=== PATIENT | female | born 1935 | race Native Hawaiian/Other Pacific Islander ===

== ENCOUNTER 2017-02-09 08:05 | Outpatient (CLI) | payer OTHER ==
[~2017-02-09 08:05] MED LIST: AMLO10TA PO; ANAS1TAB PO; ASPIRIN LOW81 MG PO; CIPRO500 MG PO; GLIP10TA55 PO; GLIP5TAB65 PO; HYDR12.54; HYDR12.54 PO; LEVO0.117 PO; LISI10TA11 PO; MINOCYCLINE100 M1 OR; MOBIC7.5 M1 PO; SIMV40TA57; SIMV40TA57 PO
== END 2017-02-09 20:59 | disposition home or self-care (01) ==
LOC: LABW 08:05
DX: Z79.01 Long term (current) use of anticoagulants (principal)
CPT/HCPCS: 36415; 85610

== ENCOUNTER 2017-02-21 07:38 | Outpatient (CLI) | payer OTHER ==
[2017-02-21 08:07] LABS: PLATELET COUNT 172 K/uL (152-353)
== END 2017-02-21 08:38 | disposition home or self-care (01) ==
LOC: LABW 07:38
PROVIDERS: Internal Medicine
DX: E11.9 Type 2 diabetes mellitus without complications (principal)
CPT/HCPCS: 36415; 80053; 80061; 81000; 83036; 85027

== ENCOUNTER 2017-07-13 09:37 | Outpatient (CLI) | payer OTHER ==
[2017-07-13] MEDS ORDERED: WARF5TAB6 PO ×2 (10:11)
[2017-07-13] MEDS ORDERED: AMLO2.5T PO ×2 (11:35)
[2017-07-13] MEDS ORDERED: LISITAB PO ×2 (11:36)
[2017-07-13] MEDS ORDERED: TRAM50TA PO ×2 (11:37)
[2017-07-13] MEDS ORDERED: NEURONTIN 100M100 MG PO ×2 (20:32)
== END 2017-07-13 09:42 | disposition short-term general hospital (02) ==
LOC: AMB 09:37
DX: R11.2 Nausea with vomiting, unspecified (principal)
CPT/HCPCS: A0425; A0429

== ENCOUNTER 2017-07-13 09:42 | Inpatient (IN) | payer OTHER ==
[~2017-07-13] VITALS: Ht 162.6 cm; Wt 93.9 kg
[2017-07-13] VITALS (9 sets, daily range): BP systolic 106–171; BP diastolic 36–60; TEMP 98–99.1; Ht 162.6 cm; Wt 93.9 kg
[2017-07-13] MEDS ORDERED: WARF5TAB6 PO ×2 (10:11)
[2017-07-13 10:31] LABS: PLATELET COUNT 172 K/uL (152-353); POTASSIUM 3.9 mmol/L (3.6-5.2)
[2017-07-13 11:00] LABS: PARTIAL THROMBOPLASTIN TIME 45.7 SECONDS (24.5-33.6)
[2017-07-13] MEDS ORDERED: AMLO2.5T PO ×2 (11:35)
[2017-07-13] MEDS ORDERED: LISITAB PO ×2 (11:36)
[2017-07-13] MEDS ORDERED: TRAM50TA PO ×2 (11:37)
--- NOTE | 2017-07-13 17:00 | NUR ---
PT HAS SCATTERED BRUISING NOTED TO LEFT AND RIGHT ARMS AND LEGS SHIRA FROM FALL ON 07-10-17. OPEN AREAS CHARTED UNDER WOUND ASSESSMENT.
[2017-07-13] MEDS ORDERED: NEURONTIN 100M100 MG PO ×2 (20:32)
[2017-07-13 22:50] LABS: PLATELET COUNT 173 K/uL (152-353)
[2017-07-13 23:08] LABS: PARTIAL THROMBOPLASTIN TIME 43.7 SECONDS (24.5-33.6)
--- NOTE | 2017-07-14 03:20 | NUR ---
07/13/17 2220: DRESSING ON RIGHT KNEE SATURATED WITH BLOOD. DRESSING REMOVED AND REDRESSED WITH TELFA, 4X4'S AND WRAPPED WITH DONNELL. 2 LARGE BROKEN BLOOD BLISTER ON RIGHT KNEE DRAING.
--- NOTE | 2017-07-14 03:24 | NUR ---
07/14/17 0230: LARGE BLOOD BLISTER ON LEFT ARM DRAINING BLOOD. COVERED WITH 4X4'S AND WRAPPED WITH KERLIX.
[2017-07-14 04:00] VITALS: BP 132/49; TEMP 98.5
[2017-07-14 08:00] VITALS: BP 106/68; TEMP 98.3
[2017-07-14 12:00] VITALS: BP 158/62; TEMP 98.5
[2017-07-14 15:30] LABS: PLATELET COUNT 151 K/uL (152-353)
[2017-07-14 15:52] LABS: PARTIAL THROMBOPLASTIN TIME 28.3 SECONDS (24.5-33.6)
[2017-07-14 15:53] LABS: POTASSIUM 4.3 mmol/L (3.6-5.2)
[2017-07-14 16:00] VITALS: BP 137/54; TEMP 97.8
[2017-07-14 20:00] VITALS: BP 123/51; TEMP 98.7
[2017-07-15 00:27] VITALS: BP 127/50; TEMP 98.1
[2017-07-15 04:00] VITALS: BP 116/50; TEMP 98.3
[2017-07-15 04:05] LABS: PLATELET COUNT 149 K/uL (152-353)
[2017-07-15 04:31] LABS: POTASSIUM 4.1 mmol/L (3.6-5.2)
[2017-07-15 08:00] VITALS: BP 136/60; TEMP 97.3
[2017-07-15 12:18] VITALS: BP 126/60; TEMP 98.7
== END 2017-07-15 15:52 | disposition home or self-care (01) | DRG 813 ==
LOC: ED 09:42 → MED/SURG 11:15
PROVIDERS: Family Medicine; Internal Medicine
PROC: 30233N1 Transfusion of Nonautologous Red Blood Cells into Peripheral Vein, Percutaneous Approach (ICD-10-PCS; principal; 2017-07-14)
DX: D68.8 Other specified coagulation defects (principal); S81.012A Laceration without foreign body, left knee, initial encounter; S81.011A Laceration without foreign body, right knee, initial encounter; W10.8XXA Fall (on) (from) other stairs and steps, initial encounter; Y93.89 Activity, other specified; Y99.8 Other external cause status; D64.89 Other specified anemias; S80.12XA Contusion of left lower leg, initial encounter; S80.11XA Contusion of right lower leg, initial encounter; S40.022A Contusion of left upper arm, initial encounter; S40.021A Contusion of right upper arm, initial encounter; I48.91 Unspecified atrial fibrillation; I10 Essential (primary) hypertension; E11.42 Type 2 diabetes mellitus with diabetic polyneuropathy; E03.8 Other specified hypothyroidism; R79.1 Abnormal coagulation profile
CPT/HCPCS: 36415; 36430; 80053; 82948; 85027; 85610; 85730; 86850; 86900; 86901; 86922; 93005; 96365; 96366; 96374; 96375; 99284; J2405; J3430; J3490; P9016

== ENCOUNTER 2017-10-09 08:02 | Outpatient (CLI) | payer OTHER ==
[~2017-10-09 08:02] MED LIST changes: +AMLO2.5T PO; +LISITAB PO; +NEURONTIN 100M100 MG PO; +TRAM50TA PO; +WARF5TAB6 PO
[2017-10-09 08:33] LABS: PLATELET COUNT 196 K/uL (152-353)
[2017-10-09 08:35] LABS: POTASSIUM 4.2 mmol/L (3.6-5.2)
== END 2017-10-09 19:03 | disposition home or self-care (01) ==
LOC: LABW 08:02
PROVIDERS: Physician Assistant
DX: Z79.01 Long term (current) use of anticoagulants (principal); Z51.81 Encounter for therapeutic drug level monitoring
CPT/HCPCS: 36415; 80048; 85027; 85610

== ENCOUNTER 2017-11-27 07:58 | Outpatient (CLI) | payer OTHER ==
[2017-11-27 08:51] LABS: PLATELET COUNT 187 K/uL (152-353)
[2017-11-27 09:27] LABS: POTASSIUM 3.8 mmol/L (3.6-5.2)
== END 2017-11-27 20:19 | disposition home or self-care (01) ==
LOC: LABW 07:58
PROVIDERS: Internal Medicine Cardiovascular Disease
DX: Z79.899 Other long term (current) drug therapy (principal); Z51.81 Encounter for therapeutic drug level monitoring; E11.9 Type 2 diabetes mellitus without complications
CPT/HCPCS: 36415; 80053; 80061; 80162; 81000; 82043; 82570; 83036; 84439; 84443; 85027; 87088

== ENCOUNTER 2017-12-06 10:55 | Outpatient (CLI) | payer OTHER | END 2017-12-06 19:56 | disposition home or self-care (01) | LOC: LABW 10:55 | DX: Z79.899 Other long term (current) drug therapy (principal); Z51.81 Encounter for therapeutic drug level monitoring | CPT/HCPCS: 36415; 80162 ==

== ENCOUNTER 2018-01-09 15:19 | Outpatient (CLI) | payer OTHER ==
[2018-01-09 15:51] LABS: PLATELET COUNT 217 K/uL (152-353)
== END 2018-01-09 19:52 | disposition home or self-care (01) ==
LOC: LABW 15:19
PROVIDERS: Internal Medicine
DX: M10.9 Gout, unspecified (principal)
CPT/HCPCS: 36415; 80048; 84550; 85027

== ENCOUNTER 2018-01-22 11:02 | Outpatient (CLI) | payer OTHER | END 2018-01-22 19:20 | disposition home or self-care (01) | LOC: LABW 11:02 | DX: R25.2 Cramp and spasm (principal); M25.522 Pain in left elbow; M25.562 Pain in left knee | CPT/HCPCS: 36415; 82306; 83735 ==

== ENCOUNTER 2018-02-22 07:48 | Outpatient (CLI) | payer OTHER ==
[2018-02-22 08:23] LABS: PLATELET COUNT 248 K/uL (152-353)
== END 2018-02-22 22:43 | disposition home or self-care (01) ==
LOC: LABW 07:48
PROVIDERS: Physician Assistant
DX: D72.828 Other elevated white blood cell count (principal)
CPT/HCPCS: 36415; 85027

== ENCOUNTER 2018-05-15 16:39 | Inpatient (IN) | payer OTHER ==
[~2018-05-15] VITALS: Ht 162.6 cm; Wt 83.5 kg
[2018-05-15 16:44] VITALS: BP 149/64; TEMP 98.6
[2018-05-15] MEDS ORDERED: DIGOXIN0.25 MG PO (16:54)
[2018-05-15] MEDS ORDERED: ALLO300T23 PO (16:54)
[2018-05-15] MEDS ORDERED: WARF5TAB6 PO (16:54)
[2018-05-15] MEDS ORDERED: AMLODIPINE BESYLATE PO (16:55)
[2018-05-15 17:00] VITALS: BP 145/67
[2018-05-15 17:14] LABS: PLATELET COUNT 231 K/uL (152-353)
[2018-05-15 17:20] LABS: POTASSIUM 4.1 mmol/L (3.6-5.2)
[2018-05-15 18:00] VITALS: BP 131/60; TEMP 98.7
[2018-05-15 23:26] VITALS: BP 188/80; TEMP 98.1; Ht 162.6 cm; Wt 83.5 kg
[2018-05-16] VITALS: BP 149/49; TEMP 99.5
[2018-05-16 03:45] VITALS: BP 142/54; TEMP 98.1
[2018-05-16 07:41] VITALS: BP 106/58; TEMP 98.2
[2018-05-16 12:00] VITALS: BP 122/59; TEMP 97.6
[2018-05-16 16:00] VITALS: BP 167/71; TEMP 98.6
[2018-05-16 19:44] VITALS: BP 132/55; TEMP 98.7
[2018-05-17] VITALS (7 sets, daily range): BP systolic 136–170; BP diastolic 47–66; TEMP 97.7–98.4
[2018-05-17 06:57] LABS: PLATELET COUNT 223 K/uL (152-353)
[2018-05-18 04:00] VITALS: BP 141/50; TEMP 98.6
[2018-05-18 06:00] LABS: PLATELET COUNT 205 K/uL (152-353)
[2018-05-18 06:11] LABS: POTASSIUM 3.8 mmol/L (3.6-5.2)
[2018-05-18 08:00] VITALS: BP 147/50; TEMP 98.1
[2018-05-18 12:00] VITALS: BP 130/67; TEMP 98
[2018-05-18 16:00] VITALS: BP 156/48; TEMP 98
[2018-05-18 20:00] VITALS: BP 155/62; TEMP 98.5
[2018-05-19] VITALS: BP 146/56; TEMP 97.9
[2018-05-19 03:59] VITALS: BP 154/65; TEMP 98
[2018-05-19 05:45] LABS: PLATELET COUNT 210 K/uL (152-353)
[2018-05-19 08:00] VITALS: BP 146/6; TEMP 97.8
== END 2018-05-19 11:11 | disposition home or self-care (01) | DRG 813 ==
LOC: ED 16:39 → MED/SURG 18:20
PROVIDERS: ADMIT Internal Medicine
DX: D68.8 Other specified coagulation defects (principal); N39.0 Urinary tract infection, site not specified; T45.515A Adverse effect of anticoagulants, initial encounter; Z79.01 Long term (current) use of anticoagulants; I48.2 Chronic atrial fibrillation; R31.9 Hematuria, unspecified; I10 Essential (primary) hypertension; E03.8 Other specified hypothyroidism; E11.40 Type 2 diabetes mellitus with diabetic neuropathy, unspecified; G25.81 Restless legs syndrome; M15.8 Other polyosteoarthritis; Z86.73 Personal history of transient ischemic attack (TIA), and cerebral infarction without residual deficits; Y92.89 Other specified places as the place of occurrence of the external cause
CPT/HCPCS: 36415; 80053; 81000; 83880; 84443; 85014; 85018; 85027; 85610; 85730; 93005; 96372; 99284; J0696; J1815; J3430; J3490

== ENCOUNTER 2018-05-24 19:09 | Emergency (ER) | payer OTHER ==
[~2018-05-24] VITALS: Ht 162.6 cm; Wt 83.5 kg
[2018-05-24 18:58] VITALS: TEMP 97.5
[~2018-05-24 19:09] MED LIST changes: +ALLO300T23 PO; +AMLODIPINE BESYLATE PO; +DIGOXIN0.25 MG PO
[2018-05-24] MEDS ORDERED: MACROBID100 MG PO (19:17)
[2018-05-24 19:47] LABS: PLATELET COUNT 242 K/uL (152-353)
[2018-05-24 19:56] LABS: POTASSIUM 4.2 mmol/L (3.6-5.2)
[2018-05-24 23:24] VITALS: BP 130/73
== END 2018-05-24 23:24 | disposition home or self-care (01) ==
LOC: ED 19:09
PROVIDERS: Emergency Medicine
DX: R10.84 Generalized abdominal pain (principal); K57.90 Diverticulosis of intestine, part unspecified, without perforation or abscess without bleeding
CPT/HCPCS: 36415; 80053; 81000; 82150; 83690; 85027; 99283

== ENCOUNTER 2018-06-06 07:38 | Outpatient (CLI) | payer OTHER ==
[~2018-06-06 07:38] MED LIST changes: +MACROBID100 MG PO
[2018-06-06 07:59] LABS: PLATELET COUNT 192 K/uL (152-353)
[2018-06-06 08:19] LABS: POTASSIUM 3.8 mmol/L (3.6-5.2)
== END 2018-06-06 22:30 | disposition home or self-care (01) ==
LOC: LABW 07:38
PROVIDERS: Internal Medicine
DX: I48.2 Chronic atrial fibrillation (principal); R31.21 Asymptomatic microscopic hematuria; I10 Essential (primary) hypertension; R79.89 Other specified abnormal findings of blood chemistry
CPT/HCPCS: 36415; 80053; 82306; 84439; 84443; 85027; 85610

== ENCOUNTER 2018-08-07 08:49 | Outpatient (CLI) | payer OTHER | END 2018-08-07 22:25 | disposition home or self-care (01) | LOC: CT 08:49 | DX: R31.0 Gross hematuria (principal) ==

== ENCOUNTER 2018-12-17 07:44 | Outpatient (CLI) | payer OTHER ==
[2018-12-17 08:20] LABS: PLATELET COUNT 201 K/uL (152-353)
[2018-12-17 08:51] LABS: POTASSIUM 4.1 mmol/L (3.6-5.2)
== END 2018-12-17 19:09 | disposition home or self-care (01) ==
LOC: LABW 07:44
PROVIDERS: Internal Medicine
DX: E11.9 Type 2 diabetes mellitus without complications (principal); R82.998 Other abnormal findings in urine
CPT/HCPCS: 36415; 80053; 80061; 81000; 82043; 82570; 83036; 84439; 84443; 85027; 87077; 87086; 87088; 87186

== ENCOUNTER 2019-02-21 07:38 | Outpatient (CLI) | payer OTHER ==
[2019-02-21 08:32] LABS: PLATELET COUNT 204 K/uL (152-353)
[2019-02-21 09:23] LABS: POTASSIUM 3.9 mmol/L (3.6-5.2)
== END 2019-02-21 19:10 | disposition home or self-care (01) ==
LOC: LABW 07:38
PROVIDERS: Internal Medicine Cardiovascular Disease
DX: E78.5 Hyperlipidemia, unspecified (principal); Z79.899 Other long term (current) drug therapy
CPT/HCPCS: 36415; 80053; 80061; 80162; 85027

== ENCOUNTER 2019-04-16 08:42 | Outpatient (CLI) | payer OTHER | END 2019-04-16 20:29 | disposition home or self-care (01) | LOC: US 08:42 | DX: R09.89 Other specified symptoms and signs involving the circulatory and respiratory systems (principal); R07.89 Other chest pain ==

== ENCOUNTER 2019-07-09 07:44 | Outpatient (CLI) | payer OTHER ==
[2019-07-09 08:25] LABS: PLATELET COUNT 208 K/uL (152-353)
[2019-07-09 08:32] LABS: POTASSIUM 4.3 mmol/L (3.6-5.2)
== END 2019-07-09 23:59 ==
LOC: LABW 07:44
PROVIDERS: Internal Medicine
DX: E11.9 Type 2 diabetes mellitus without complications (principal); M10.9 Gout, unspecified; R82.998 Other abnormal findings in urine
CPT/HCPCS: 36415; 80053; 80061; 81000; 83036; 84439; 84443; 84550; 85027; 87086; 87088

== ENCOUNTER 2020-01-15 07:27 | Outpatient (CLI) | payer OTHER ==
[2020-01-15 08:04] LABS: PLATELET COUNT 180 K/uL (152-353)
[2020-01-15 08:27] LABS: POTASSIUM 4.1 mmol/L (3.6-5.2)
== END 2020-01-15 19:17 | disposition home or self-care (01) ==
LOC: LABW 07:27
PROVIDERS: Internal Medicine
DX: E11.9 Type 2 diabetes mellitus without complications (principal); R79.89 Other specified abnormal findings of blood chemistry
CPT/HCPCS: 36415; 80053; 80061; 81000; 82043; 82306; 82570; 83036; 84439; 84443; 85027

== ENCOUNTER 2020-08-20 07:48 | Outpatient (CLI) | payer OTHER ==
[2020-08-20 08:22] LABS: PLATELET COUNT 194 K/uL (152-353)
== END 2020-08-20 19:38 | disposition home or self-care (01) ==
LOC: LABW 07:48
PROVIDERS: Internal Medicine
DX: Z00.00 Encounter for general adult medical examination without abnormal findings (principal); E11.9 Type 2 diabetes mellitus without complications; Z13.820 Encounter for screening for osteoporosis; E55.9 Vitamin D deficiency, unspecified; R82.998 Other abnormal findings in urine
CPT/HCPCS: 36415; 80053; 80061; 81000; 82306; 83036; 84439; 84443; 85027; 87088

== ENCOUNTER 2020-09-17 10:07 | Outpatient (CLI) | payer OTHER | END 2020-09-17 23:12 | disposition home or self-care (01) | LOC: RAD 10:07 | DX: Z13.820 Encounter for screening for osteoporosis (principal); N95.8 Other specified menopausal and perimenopausal disorders ==

== ENCOUNTER 2022-02-21 14:00 | Outpatient (CLI) | payer OTHER | END 2022-02-21 19:25 | disposition home or self-care (01) | LOC: US 14:00 | PROVIDERS: ATTEND Internal Medicine Cardiovascular Disease | DX: I77.89 Other specified disorders of arteries and arterioles (principal) ==

== ENCOUNTER 2022-07-14 07:56 | Outpatient (CLI) | payer OTHER ==
[2022-07-14 08:16] LABS: PLATELET COUNT 180 K/uL (152-353)
== END 2022-07-14 19:22 | disposition home or self-care (01) ==
LOC: LABW 07:56
PROVIDERS: ATTEND Physician Assistant
DX: Z79.899 Other long term (current) drug therapy (principal); I48.91 Unspecified atrial fibrillation
CPT/HCPCS: 36415; 80048; 80162; 85027

== ENCOUNTER → 2022-08-23 | Outpatient (CLI) | payer OTHER ==
[2022-08-23 09:10] LABS: PLATELET COUNT 194 K/uL (152-353)
== END ==
LOC: LABW 08:28
PROVIDERS: ATTEND Internal Medicine
DX: E11.9 Type 2 diabetes mellitus without complications (principal); I48.91 Unspecified atrial fibrillation
CPT/HCPCS: 36415; 80053; 80061; 80162; 81000; 83036; 84439; 84443; 85027

== ENCOUNTER 2022-12-22 15:06 | Emergency (ER) | payer OTHER ==
[~2022-12-22] VITALS: Ht 162.6 cm; Wt 83.5 kg
[2022-12-22 15:07] VITALS: TEMP 98.3
[2022-12-22 15:40] LABS: PLATELET COUNT 204 K/uL (152-353)
[2022-12-22 15:49] LABS: POTASSIUM 3.9 mmol/L (3.6-5.2)
[2022-12-22 16:08] LABS: PARTIAL THROMBOPLASTIN TIME 25.7 SECONDS (24.5-33.6)
[2022-12-22 18:08] VITALS: BP 150/88
== END 2022-12-22 18:08 | disposition home or self-care (01) ==
LOC: ED 15:06
PROVIDERS: Emergency Medicine
DX: J20.9 Acute bronchitis, unspecified (principal); N18.9 Chronic kidney disease, unspecified; I50.9 Heart failure, unspecified; Z20.822 Contact with and (suspected) exposure to COVID-19
CPT/HCPCS: 80053; 81002; 83880; 84484; 85027; 85610; 85730; 87502; 87635; 93005; 94664; 99283; U0001

== ENCOUNTER 2023-02-22 15:10 | Outpatient (CLI) | payer OTHER | END 2023-02-22 18:00 | disposition home or self-care (01) | LOC: RAD 15:10 | PROVIDERS: ATTEND Internal Medicine | DX: M10.9 Gout, unspecified (principal) ==